=== PATIENT | female | born 1970 | race Caucasian/White ===

== ENCOUNTER → 2016-10-21 | Outpatient (CLI) | payer BC ==
[~2016-10-21] MED LIST: ABILIFY 10MG TA10 MG PO; CONCERTA; DAYTRANA20 MG/9 HR TD; FLEXERIL 1010 MG/TAB PO; FLUOXETINE; IMITREX50 MG PO; LAMICTAL 100MG100 MG PO; LITHIUM 30300 MG/CAP PO; METHYLPHENIDATE; VYVANSE40 MG PO; XANAX
== END ==
LOC: BHSO 15:20
DX: F31.73 Bipolar disorder, in partial remission, most recent episode manic (principal)

== ENCOUNTER 2016-12-11 23:46 | Emergency (ER) | payer BC ==
[~2016-12-11] VITALS: Ht 170.2 cm; Wt 72.7 kg
[~2016-12-11 23:46] MED LIST changes: -FLEXERIL 1010 MG/TAB PO; -IMITREX50 MG PO; -VYVANSE40 MG PO
[2016-12-11 23:49] VITALS: TEMP 98.9
[2016-12-11] MEDS ORDERED: VYVANSE40 MG PO (23:53)
[2016-12-11] MEDS ORDERED: IMITREX50 MG PO (23:54)
[2016-12-12] MEDS ORDERED: FLEXERIL 1010 MG/TAB PO (01:29)
[2016-12-12 01:56] VITALS: BP 126/78; PULSE 89
== END 2016-12-12 02:32 | disposition home or self-care (01) ==
LOC: COL.ER 23:46
DX: S39.012A Strain of muscle, fascia and tendon of lower back, initial encounter (principal); M62.830 Muscle spasm of back; X50.0XXA Overexertion from strenuous movement or load, initial encounter

== ENCOUNTER → 2017-05-11 | Outpatient (CLI) | payer BC ==
[~2017-05-11] MED LIST changes: +FLEXERIL 1010 MG/TAB PO; +IMITREX50 MG PO; +VYVANSE40 MG PO
== END ==
LOC: BHSO 15:55
DX: F31.73 Bipolar disorder, in partial remission, most recent episode manic (principal)

== ENCOUNTER → 2017-06-10 | Outpatient (CLI) | payer BC | LOC: BHSO 16:19 | DX: F31.73 Bipolar disorder, in partial remission, most recent episode manic (principal) ==

== ENCOUNTER → 2017-09-14 | Outpatient (CLI) | payer BC | LOC: BHSO 10:49 | DX: F31.81 Bipolar II disorder (principal) | CPT/HCPCS: G0463 ==

== ENCOUNTER → 2017-11-05 | Outpatient (CLI) | payer BC | LOC: BHSO 08:36 | DX: F31.31 Bipolar disorder, current episode depressed, mild (principal) | CPT/HCPCS: G0463 ==

== ENCOUNTER → 2018-01-05 | Outpatient (CLI) | payer BC | LOC: BHSO 08:41 | DX: F31.81 Bipolar II disorder (principal) | CPT/HCPCS: G0463 ==

== ENCOUNTER → 2018-04-13 | Outpatient (CLI) | payer BC | LOC: BHSO 08:21 | DX: F31.75 Bipolar disorder, in partial remission, most recent episode depressed (principal) | CPT/HCPCS: G0463 ==

== ENCOUNTER → 2018-07-28 | Outpatient (CLI) | payer BC | LOC: BHSO 08:46 | DX: F31.75 Bipolar disorder, in partial remission, most recent episode depressed (principal) | CPT/HCPCS: G0463 ==

== ENCOUNTER → 2018-10-17 | Outpatient (CLI) | payer BC | LOC: BHSO 08:44 | DX: F31.78 Bipolar disorder, in full remission, most recent episode mixed (principal) | CPT/HCPCS: G0463 ==

== ENCOUNTER → 2019-01-19 | Outpatient (CLI) | payer BC | LOC: COL.RAD 14:00 | DX: N32.89 Other specified disorders of bladder (principal); R31.0 Gross hematuria | CPT/HCPCS: Q9967 ==

== ENCOUNTER 2019-01-20 14:46 | Observation (INO) | payer BC ==
[~2019-01-20] VITALS: Ht 170.2 cm; Wt 72.8 kg
[2019-01-20] VITALS (7 sets, daily range): BP systolic 95–119; BP diastolic 52–73; PULSE 82–88; TEMP 98.2
--- NOTE | 2019-01-20 15:40 | NUR ---
Patient brought back to bay, ambulated without difficulty. Alert and oriented x 4. Vital signs stable. Heart sounds regular, lung sounds clear, bowel sounds active. MRSA swab obtained d/t past history in wound. IV started in right hand, fluids infusing WNL. Daughter Cheyenne at bedside. Warm blanket provided. Call coto within reach, will continue to monitor.
--- NOTE | 2019-01-20 16:20 | NUR ---
SW's, Yeny, met with patient to complete DPOA-HC. Patient SW witnessed signature and provided the original and extra copies. SW also placed a copy on patient's chart.
--- NOTE | 2019-01-20 18:45 | NUR ---
Patient assisted to bed from surgery cart. Patient transferred with minimal assist. Denies pain at this time. She is alert and oriented. 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 No complaints of nausea. Family at bedside. Patient will be discharging tonight. She is ordering food at this time. Call light within reach. Patient is hooked up to post-op checks at this time.
--- NOTE | 2019-01-20 19:45 | NUR ---
VOIDS 300CC OF YELLOW URINE, GAIT STEADY. DENIES PAIN AT THIS TIME.
--- NOTE | 2019-01-20 20:10 | NUR ---
DISCHARGE INSTRUCTIONS REVIEWED WITH PATIENT, VERBALIZES UNDERSTANDING. IV SITE DC'D FROM RIGHT HAND, ANGIOCATH INTACT. EATING DINNER, WILL CALL WHEN DRESSED AND READY TO GO.
--- NOTE | 2019-01-20 20:35 | NUR ---
DISCHARGED TO PRIVATE CAR VIA W/C. COPY OF DISCHARGE INSTRUCTIONS SENT WITH PATIENT WELL PERSONAL BELONGINGS RETURNED TO PATIENT.
== END 2019-01-20 20:35 | disposition home or self-care (01) ==
LOC: SURG 14:46 → EDSTATUS 16:30 → SDCO 16:30 → SURG 20:35
PROVIDERS: ADMIT Urology
DX: R31.0 Gross hematuria (principal); R30.0 Dysuria; R35.1 Nocturia; N36.42 Intrinsic sphincter deficiency (ISD); F41.9 Anxiety disorder, unspecified; F31.9 Bipolar disorder, unspecified; F32.9 Major depressive disorder, single episode, unspecified; G43.909 Migraine, unspecified, not intractable, without status migrainosus; G47.419 Narcolepsy without cataplexy; Z86.14 Personal history of Methicillin resistant Staphylococcus aureus infection; Z79.899 Other long term (current) drug therapy; Z80.1 Family history of malignant neoplasm of trachea, bronchus and lung; Z81.8 Family history of other mental and behavioral disorders; Z90.710 Acquired absence of both cervix and uterus; Z96.0 Presence of urogenital implants; Z88.6 Allergy status to analgesic agent; Z88.5 Allergy status to narcotic agent
CPT/HCPCS: J0690; J1100; J2250; J2405; J2704; J3010; J7120; Q9967

== ENCOUNTER → 2019-04-20 | Outpatient (CLI) | payer BC | LOC: BHSO 08:48 | DX: F31.75 Bipolar disorder, in partial remission, most recent episode depressed (principal) | CPT/HCPCS: G0463 ==

== ENCOUNTER → 2019-07-19 | Outpatient (CLI) | payer BC | LOC: BHSO 08:33 | DX: F31.75 Bipolar disorder, in partial remission, most recent episode depressed (principal) | CPT/HCPCS: G0463 ==

== ENCOUNTER → 2020-12-04 | Outpatient (CLI) | payer MEDICAID | LOC: MC.RAD 11:02 | DX: N63.20 Unspecified lump in the left breast, unspecified quadrant (principal); N64.52 Nipple discharge ==